=== PATIENT | female | born 1995 | race Caucasian/White ===

== ENCOUNTER 2016-12-24 18:01 | Emergency (ER) | payer OTHER ==
[2016-12-24 20:25] LABS: HEMOGLOBIN 15.3 gm/dl (12.3-15.3); RED BLOOD COUNT 4.83 M/UL (4.00-5.10); WHITE BLOOD COUNT 15.4 K/UL (4.5-11.0)
[2016-12-24 20:42] LABS: BUN/CREATININE RATIO 15 (0-10)
== END 2016-12-24 23:27 | disposition home or self-care (01) ==
LOC: ER1 18:01
PROVIDERS: Emergency Medicine
DX: N73.9 Female pelvic inflammatory disease, unspecified (principal); N39.0 Urinary tract infection, site not specified; N76.0 Acute vaginitis; B96.89 Other specified bacterial agents as the cause of diseases classified elsewhere
CPT/HCPCS: 36415; 80053; 81001; 83690; 84703; 85025; 87210; 96374; 96375; 99284; J0696; J1885; J2405; J7030; J7050; Q9962